=== PATIENT | male | born 2000 | race Caucasian/White ===

== ENCOUNTER 2020-11-05 15:10 | Emergency (ER) | payer OTHER ==
[~2020-11-05] VITALS: Ht 188 cm; Wt 72.6 kg
[~2020-11-05 15:10] MED LIST: HYDACE5 PO
[2020-11-05] MEDS ORDERED: AMOCLA875 PO (17:19)
== END 2020-11-05 17:48 | disposition home or self-care (01) ==
LOC: ER 15:10
DX: S01.551A Open bite of lip, initial encounter (principal); W54.0XXA Bitten by dog, initial encounter
CPT/HCPCS: 12011; 90471; 90714; 99283; A9270

== ENCOUNTER 2020-11-10 16:36 | Emergency (ER) | payer OTHER ==
[~2020-11-10] VITALS: Ht 188 cm; Wt 72.6 kg
[~2020-11-10 16:36] MED LIST changes: +AMOCLA875 PO
== END 2020-11-10 17:07 | disposition home or self-care (01) ==
LOC: ER 16:36
DX: S01.551D Open bite of lip, subsequent encounter (principal); Z79.899 Other long term (current) drug therapy; W54.0XXD Bitten by dog, subsequent encounter